=== PATIENT | male | born 1980 | race Caucasian/White ===

== ENCOUNTER 2019-04-10 18:23 | Emergency (ER) | payer OTHER ==
--- NOTE | 2019-04-10 19:02 | ED Physician Documentation ---
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 patient reports he exercised more than usual several days ago and his left knee has been swelling and noticed significant swelling over the last 4 hours. he reports several years ago where he had a similar presentation and ultimately was found to have a septic left knee joint that required OR treatment by orthopedic surgery that grew out MRSA. the patient denies fevers but reports swelling, denies any hx of IVDA or spinal surgery. he can bear weight but it is painful.) Review of Systems Ten Systems: 10 systems reviewed and negative Constitutional: reports: Reviewed and negative Eyes: reports: Reviewed and negative Ears: reports: Reviewed and negative Nose: reports: Reviewed and negative Throat: reports: Reviewed and negative Cardiac: reports: Reviewed and negative Respiratory: reports: Reviewed and negative GI: reports: Reviewed and negative : reports: Reviewed and negative Skin: reports: Reviewed and negative Musculoskeletal: reports: Extremity pain, Joint pain, Extremity swelling Neurologic: reports: Reviewed and negative Psychiatric: reports: Reviewed and negative Endocrine: reports: Reviewed and negative Immunocompromised: reports: Reviewed and negative PD PAST MEDICAL HISTORY - Past Medical History Past Medical History: Yes GI: GERD Musculoskeletal: Osteoporosis - Past Surgical History Past Surgical History: Yes Ortho: Arthroscopic surgery - Present Medications Home Medications: Ambulatory Orders Medication Instructions Recorded Confirmed Glucosamine/D3/Boswellia Tiana 1 each PO 04/10/19 04/10/19 [Glucosamine Complex-Vit D3 Cpt] Multivitamin [Multiple Vitamins] 1 each PO 04/10/19 Naproxen Sodium [Aleve] 220 mg PO 04/10/19 Rabeprazole Sodium [Aciphex] 20 mg PO 04/10/19 - Allergies Allergies/Adverse Reactions: Allergies Allergy/AdvReac Type Severity Reaction Status Date / Time No Known Drug Allergies Allergy Verified 04/10/19 18:36 - Social History Does the pt smoke?: No Smoking Status: Never smoker Does the pt drink ETOH?: Yes Does the pt have substance abuse?: No PD ED PE NORMAL - Vitals Vital signs reviewed: Yes - General General: Alert and oriented X 3, No acute distress, Well developed/nourished - HEENT HEENT: Atraumatic, PERRL, Pharynx benign - Neck Neck: Supple, no meningeal sign, No bruit - Cardiac Cardiac: RRR, No murmur, Strong equal pulses - Respiratory Respiratory: No respiratory distress, Clear bilaterally - Abdomen Abdomen: Normal bowel sounds, Soft, Non tender, Non distended, No organomegaly - Back Back: No CVA TTP, No spinal TTP - Derm Derm: Normal color, Warm and dry, No rash, Other - Extremities Extremities: No deformity, Other (there is swelling to the left knee diffusely with an effusion and ballottment of the left patella, able to ambulate but with a limp, able to completely extend on passive and active ROM but decreased flexion beyone 45 degrees. no streaking, no redness, no warmth, no inguinal lad. palpable dp/pt 2+ pulses. ) - Neuro Neuro: Alert and oriented X 3 - Psych Psych: Normal mood, Normal affect Results - Vitals Vitals: Vital Signs - 24 hr 04/10/19 04/10/19 04/10/19 18:30 20:34 21:42 Temperature 37.7 C H 36.9 C 37.4 C Heart Rate 100 86 90 Respiratory 18 16 18 Rate Blood Pressure 123/72 134/77 H 121/69 O2 Saturation 96 96 95 Oxygen O2 Source Room air - Labs Labs: Microbiology 04/10/19 20:20 Body Fluid Culture - Preliminary Synovial Fluid Laboratory Tests 04/10/19 04/10/19 04/10/19 20:20 20:20 20:58 WBC 8.5 RBC 5.21 Hgb 15.0 Hct 45.2 MCV 86.8 MCH 28.8 MCHC 33.2 RDW 13.0 Plt Count 189 MPV 9.9 Neut # (Auto) 5.6 Lymph # (Auto) 1.6 Pima # (Auto) 1.2 H Eos # (Auto) 0.0 Baso # (Auto) 0.1 Absolute Nucleated RBC 0.00 Nucleated RBC % 0.0 ESR Sodium Potassium Chloride Carbon Dioxide Anion Gap BUN Creatinine Estimated GFR (MDRD) Glucose Calcium Total Bilirubin AST ALT Alkaline Phosphatase Total Creatine Kinase C-Reactive Protein Total Protein Albumin Globulin Albumin/Globulin Ratio Lipase Fluid Source KNEE Fluid Color YELLOW Fluid Clarity HAZY Fluid WBC 24103 Fluid RBC 2000 Fluid Neutrophils % 88 Fluid Lymphocytes % 1 Fluid Monocytes % 11 Fld Mesothelial Cell % Not Reportable Fluid Crystals NONE SEEN 04/10/19 04/10/19 20:58 20:58 WBC RBC Hgb Hct MCV MCH MCHC RDW Plt Count MPV Neut # (Auto) Lymph # (Auto) Pima # (Auto) Eos # (Auto) Baso # (Auto) Absolute Nucleated RBC Nucleated RBC % ESR 6 Sodium 139 Potassium 4.0 Chloride 105 Carbon Dioxide 23 Anion Gap 11.0 BUN 18 Creatinine 1.0 Estimated GFR (MDRD) 83 L Glucose 126 H Calcium 8.8 Total Bilirubin 0.8 AST 20 ALT 15 Alkaline Phosphatase 51 Total Creatine Kinase 68 C-Reactive Protein 5.2 H Total Protein 7.2 Albumin 4.2 Globulin 3.0 Albumin/Globulin Ratio 1.4 Lipase 40 Fluid Source Fluid Color Fluid Clarity Fluid WBC Fluid RBC Fluid Neutrophils % Fluid Lymphocytes % Fluid Monocytes % Fld Mesothelial Cell % Fluid Crystals PD MEDICAL DECISION MAKING - ED course Complexity details: other (concern is for septic arthritis given past hx, arthrocentesis by dr nicholas borrero, see sep note. WBC less than 50,000 PMNs less than 95%, this is unlikely a septic joint and more consistent with inflammatory. will have patient follow up closely with flight surgeon tomorrow and ortho on [facility] if available if not the follow up with local ortho, referral provided on dc paperwork, return to the ed w any concerns. ) Departure - Departure Disposition: 01 Home, Self Care Clinical Impression: Effusion, left knee Condition: Good Instructions: ED Effusion Knee Follow-Up: Pierce Humphreys MD [Provider Admit Priv/Credential] - Tomorrow Comments: keep knee elevated and ice several times daily. follow up with medical/flight surgeon tomorrow. Call to schedule follow up with orthopedic surgeon this week [facility] at [facility] or [facility]. Return to the ED with any concerns. take ibuprofen as needed. Discharge Date/Time: 04/10/19 21:50
[2019-04-10] MEDS ORDERED: VANCOMYCIN INJ 1 GM in SODIUM CHLORIDE 0.9% 500 ML IV STA (19:18)
[2019-04-10] MEDS ORDERED: cefTRIAXone 1 GM in SODIUM CHLORIDE 0.9% MINIBAG 100 ML IV STA (19:18)
[2019-04-10] MEDS ORDERED: IBUPROFEN 800 MG TABLET PO STA (19:20)
--- NOTE | 2019-04-10 19:41 | XRAY Report ---
Reason: left knee pain swelling Procedure Date: 04/10/2019 Accession Number: [id number] / [id number] Procedure: XR - Knee 4 View LT CPT Code: Final Report FULL RESULT: EXAM: LEFT KNEE RADIOGRAPHY EXAM DATE: 04/10/2019 07:03 PM. CLINICAL HISTORY: Left knee pain swelling. COMPARISON: None. TECHNIQUE: 4 views. FINDINGS: Bones: No fracture. No lytic or destructive bone lesion. Joints: Positive for moderate sized suprapatellar joint effusion. Soft Tissues: Otherwise unremarkable. IMPRESSION: 1. Moderate joint effusion. No fracture. RADIA
[2019-04-10] MEDS ORDERED: HYDROcod/ACETAM 5/325 MG TABLET PO STA (20:20)
--- NOTE | 2019-04-10 20:22 | ED Physician Documentation ---
ED Addendum - Addendum Addendum: 04/10/19 20:21 I helped out by performing an arthrocentesis on this gentleman. Written consent was obtained after discussion of the risks including introduction of infection, bleeding, nerve injury, need for surgery. The medial left knee was sterilely prepped with chlorhexidine and draped. Infiltrated with 5 mL of lidocaine with epinephrine and then an 18-gauge needle was used again with a medial approach to obtain 37 mL of cloudy fluid, not bloody. Sent for cell count, Gram stain, culture, and crystal exam. 04/10/19 21:30 I was not otherwise involved in care or MDM.
[2019-04-10 20:59] LABS: BF SOURCE KNEE; CC,BF RBC 2000 /mm^3
[2019-04-10 21:00] LABS: BF COLOR YELLOW
[2019-04-10 21:05] LABS: BASOPHILS # (AUTO) 0.1 10^3/uL (0.0-0.1); BASOPHILS % (AUTO) 0.7 %; EOSINOPHILS % (AUTO) 0.5 %; LYMPHOCYTES # (AUTO) 1.6 10^3/uL (1.5-3.5); MEAN CORPUSCULAR HEMOGLOBIN 28.8 pg (27.0-31.0); MEAN CORPUSCULAR HGB CONC 33.2 g/dL (32.0-36.0); MEAN CORPUSCULAR VOLUME 86.8 fL (80.0-94.0); MEAN PLATELET VOLUME 9.9 fL (7.4-11.4); MONOCYTES # (AUTO) 1.2 10^3/uL (0.0-1.0); MONOCYTES % (AUTO) 13.6 %; NEUTROPHILS # (AUTO) 5.6 10^3/uL (1.5-6.6); NEUTROPHILS % (AUTO) 65.8 %; PLT - PLATELET COUNT 189 10^3/uL (130-450); RED BLOOD COUNT 5.21 10^6/uL (4.70-6.10); WHITE BLOOD COUNT 8.5 x10^3/uL (4.8-10.8)
[2019-04-10 21:23] LABS: LYMPHOCYTES %,BODY FLUID 1; MONOCYTES %,BODY FLUID 11 %
[2019-04-10 21:27] LABS: ALBUMIN 4.2 g/dL (3.2-5.5); ALBUMIN/GLOBULIN RATIO 1.4 (1.0-2.2); BILIRUBIN,TOTAL 0.8 mg/dL (0.2-1.0); CALCIUM 8.8 mg/dL (8.5-10.3); CRP - C-REACTIVE PROTEIN 5.2 mg/dL (0-1.0); TOTAL PROTEIN 7.2 g/dL (6.7-8.2)
[2019-04-10] MEDS ORDERED: HYDROcod/ACET 5/325 Prepack 4 PO STA (21:30)
[2019-04-10 21:43] VITALS: BP 121/69
== END 2019-04-10 21:50 | disposition home or self-care (01) ==
LOC: ED 18:23
DX: M25.462 Effusion, left knee (principal); M25.562 Pain in left knee; Z86.14 Personal history of Methicillin resistant Staphylococcus aureus infection
CPT/HCPCS: 20610; 36415; 73564; 80053; 82550; 83690; 85025; 85651; 86140; 87040; 87070; 87205; 89051; 89060; 99284; A9270; J3370

== ENCOUNTER 2019-05-07 08:00 | Outpatient (CLI) | payer OTHER ==
--- NOTE | 2019-05-07 14:39 | MRI Report ---
Reason: PAIN IN LT KNEE Procedure Date: 05/07/2019 Accession Number: [id number] / [id number] Procedure: MRI - Knee LT W/O CPT Code: Final Report FULL RESULT: EXAM: LEFT KNEE MRI WITHOUT CONTRAST EXAM DATE: 05/07/2019 09:13 AM. CLINICAL HISTORY: Pain in left knee. COMPARISON: None. TECHNIQUE: Multiplanar, multisequence T1-weighted and fluid-sensitive sequences of the knee without contrast. Other: None. FINDINGS: Bones: Small amount of marrow edema seen at the patellar apex and lateral patellar facet. Articular Cartilage: Some cartilaginous fissuring at the trochlear groove, some grade 3-4 chondromalacia medial patellar facet. Medial Meniscus: The medial meniscus is intact. Lateral Meniscus: The lateral meniscus is intact. Cruciate Ligaments: The anterior and posterior cruciate ligaments are intact. Collateral Ligaments: The medial collateral and lateral collateral ligamentous structures are intact. Tendons: The quadriceps, patellar, semimembranosus, and popliteus tendons are unremarkable. Musculature: No edema or fatty atrophy. Other: Moderate size joint effusion. No popliteal cyst. Innumerable small loose bodies. The medial and lateral retinacula are intact. Some subcutaneous edema and swelling is seen at Hoffa's fat pad. IMPRESSION: 1. Small amount of marrow edema at the patellar apex and lateral patellar facet associated with some grade 3-4 chondromalacia. 2. Menisci, cruciates and collaterals are unremarkable. 3. Moderate-sized joint effusion with innumerable loose bodies present. Mild synovitis also present. Some subcutaneous edema and swelling are seen. RADIA
== END 2019-05-07 08:01 | disposition home or self-care (01) ==
LOC: DI 08:00
DX: M94.262 Chondromalacia, left knee (principal); M25.462 Effusion, left knee; M23.42 Loose body in knee, left knee; M65.9 Synovitis and tenosynovitis, unspecified

== ENCOUNTER 2022-05-24 19:10 | Emergency (ER) | payer OTHER ==
[2022-05-24 19:19] VITALS: BP 127/85
--- NOTE | 2022-05-24 19:26 | ED Physician Documentation ---
PD HPI OPHTHO - Stated complaint Stated Complaint: RT EYE IRRATATION - Chief complaint Chief Complaint: Heent - Additional information Additional information: 41-year-old male presents with right eye pain and injury. He states that he was mowing the lawn when he believes he got some debris in his eye. He rubbed it and it was not particularly bothersome so he finished mowing the lawn but then it started to irritate him more. He went inside and irrigated the eye and soaked his eye in the sink but it continued to be painful and he had decrease in vision on that side. He also had significant tearing and had difficulty opening his eye. He did not attempt any medication. He does not feel like there is any grittiness or debris remaining in his eye. He does not wear contacts, and states he typically has poor vision on the right than the left. Review of Systems Constitutional: reports: Reviewed and negative, Other (All other systems reviewed and are negative except as described in HPI) PD PAST MEDICAL HISTORY - Past Medical History Past Medical History: No GI: GERD Musculoskeletal: Osteoporosis - Past Surgical History Past Surgical History: Yes Ortho: Arthroscopic surgery - Present Medications Home Medications: Ambulatory Orders Medication Instructions Recorded Confirmed Glucosamine/D3/Boswellia Tiana 1 each PO DAILY 04/10/19 05/24/22 [Glucosamine Complex-Vit D3 Cpt] Multivitamin [Multiple Vitamins] 1 each PO DAILY 04/10/19 05/24/22 Naproxen Sodium [Aleve] 220 mg PO DAILY 04/10/19 05/24/22 Rabeprazole Sodium [Aciphex] 20 mg PO DAILY 04/10/19 05/24/22 Erythromycin Ophth Oint (3.5) 1 applic EACHEYE QID 7 Days #3.5 gm 05/24/22 [Ilotycin Ophth Oint (3.5)] - Allergies Allergies/Adverse Reactions: Allergies Allergy/AdvReac Type Severity Reaction Status Date / Time No Known Drug Allergies Allergy Verified 05/24/22 19:14 - Social History Does the pt smoke?: No Smoking Status: Never smoker Does the pt drink ETOH?: Yes Does the pt have substance abuse?: No PD ED PE NORMAL - Vitals Vital signs reviewed: Yes - General General: Alert and oriented X 3, No acute distress, Well developed/nourished - HEENT HEENT: Atraumatic, PERRL, EOMI, Moist mucous membranes, Other (There is a corneal abrasion on fluorescein stain between the 12:00 and 2 o'clock position of the right cornea. No foreign bodies or other injuries noted. The globe is intact. He has normal range of motion of the extraocular eye muscles, pupils equal round and responsive. There is mild redness of) Results - Vitals Vitals: Vital Signs - 24 hr 05/24/22 19:15 Temperature 36.8 C Heart Rate 72 Respiratory 16 Rate Blood Pressure 127/85 H O2 Saturation 97 Oxygen O2 Source Room air PD Medical Decision Making - ED course Complexity details: re-evaluated patient, considered differential, d/w patient ED course: 41-year-old male presents with right eye irritation as described in HPI. On physical exam, the patient is uncomfortable with persistent tearing of the right eye. He initially was noting some decreased vision of the right eye compared to baseline however after he was given proparacaine drops and his pain improved, his vision was at baseline. I evaluated the patient in he appears to have a corneal abrasion between the 12:00 and 2 o'clock position of the right cornea. No other injuries noted. His globe is intact there were no visible foreign bodies, and he has normal extraocular eye movement and pupillary response. He felt substantially better after proparacaine. We will start the patient on erythromycin ointment here in the ER and he should continue this 4 times a day until symptoms improve, and he was advised he can take ibuprofen as well as Tylenol for pain. He was advised that symptoms should rapidly improve over the next day or so and if any point time he felt like his pain was worsening, he had worsening vision, purulent drainage, or other new concerns, advised to return to the ER or see an learning and development assistant Departure - Departure Disposition: 01 Home, Self Care Clinical Impression: Right corneal abrasion Qualifiers: Encounter type: initial encounter Qualified Code(s): S05.01XA - Injury of conjunctiva and corneal abrasion without foreign body, right eye, initial encounter Condition: Good Instructions: ED Eye Injury Corneal Abrasion Prescriptions: Erythromycin Ophth Oint (3.5) [Ilotycin Ophth Oint (3.5)] 1 applic EACHEYE QID 7 Days #3.5 gm Comments: You have a corneal abrasion. Please avoid rubbing the eye. Use the ointment provided every 4-6 hours throughout the day. If you need additional lubricant you can buy over the counter eye lubricant. You can take ibuprofen and tylenol for pain. If no improvement in 2-3 days or worsening eye pain or vision, return to the ER or see color specialist. Forms: Activity restrictions
[2022-05-24] MEDS ORDERED: PROPARACAINE 0.5% OPHTH DROPS 15 ML EACHEYE STA (19:39)
[2022-05-24] MEDS ORDERED: ERYTHROMYCIN OPHTH OINT 1 GM TUBE RIGHTEYE STA (19:48)
== END 2022-05-24 19:59 | disposition home or self-care (01) ==
LOC: ED 19:10
DX: S05.01XA Injury of conjunctiva and corneal abrasion without foreign body, right eye, initial encounter (principal); X58.XXXA Exposure to other specified factors, initial encounter; Y93.H2 Activity, gardening and landscaping
CPT/HCPCS: 99282; 99283; J3490